=== PATIENT | male | born 1950 | race African-American/Black ===

== ENCOUNTER 2019-02-08 09:07 | Emergency (ER) | payer OTHER ==
[~2019-02-08] VITALS: Ht 179.1 cm; Wt 121.6 kg
--- NOTE | 2019-02-08 09:35 | PHYS DOC ---
Past Medical History Past Medical History: Asthma, Bronchitis, Diabetes-Type II, Hypertension Past Surgical History: Other Additional Past Surgical Histo: left eye, right abdomen skin, Alcohol Use: None Drug Use: None Adult General Chief Complaint Chief Complaint: GROIN PAIN [facility] HPI Patient is a 68-year-old male who presents with complaint of right groin pain that has been intermittent for the last 1-2 months. Patient states that he started noticing the pain again yesterday. He rates pain at a 7 out of 10. He states the pain radiates down into his right testicle. He denies any urinary discomfort. He also denies any nausea or vomiting. Patient has had no fever or back pain. He denies any dysuria or penile discharge.[] Review of Systems Review of Systems Constitutional: Denies fever or chills [] Respiratory: Denies cough or shortness of breath [] Cardiovascular: No additional information not addressed in HPI [] GI: Denies abdominal pain, nausea, vomiting, bloody stools or diarrhea [] : Positive right groin/right testicular pain[] Musculoskeletal: Denies back pain or joint pain [] All other systems were reviewed and found to be within normal limits, except as documented in this note. Current Medications Current Medications Current Medications Medications (Trade) Dose Ordered Sig/Lindsey Start Time Stop Time Status Last Admin Dose Admin Ceftriaxone Sodium (Rocephin Im) 250 mg 1X ONCE 02/08/19 11:45 02/08/19 11:46 UNV Allergies Allergies Allergies Coded Allergies Type Severity Reaction Last Updated Verified Penicillins Allergy Intermediate h/a, passed out 02/21/15 Yes erythromycin base Allergy Intermediate H/A 02/21/15 Yes Physical Exam Physical Exam Constitutional: Well developed, well nourished, no acute distress, non-toxic appearance. [] HENT: Normocephalic, atraumatic, bilateral external ears normal, oropharynx moist, no oral exudates, nose normal. [] Eyes: PERRLA, EOMI, conjunctiva normal, no discharge. [] Neck: Normal range of motion, no tenderness, supple, no stridor. [] Cardiovascular: Regular rate and rhythm[] Lungs & Thorax: Bilateral breath sounds clear to auscultation [] Abdomen: Bowel sounds normal, soft, no tenderness. [] Skin: Warm, dry, no erythema, no rash. [] Extremities: No tenderness, no cyanosis, no clubbing, ROM intact. [] Neurologic: Alert and oriented X 3, no focal deficits noted. [] : There is diffuse right testicular tenderness that limits evaluation. No scrotal or penile lesions and no penile discharge is noted. [] Current Patient Data Vital Signs Vital Signs Date Time Temp Pulse Resp B/P (MAP) Pulse Ox O2 Delivery O2 Flow Rate FiO2 02/08/19 09:19 98.9 89 16 125/72 (89) 97 Room Air 98.9 Lab Values Laboratory Tests Test 02/08/19 09:15 02/08/19 09:40 Urine Collection Type Void Urine Color Yellow Urine Clarity Cloudy Urine pH 5.5 Urine Specific [employer] >=1.030 Urine Protein 30 mg/dL (NEG-TRACE) Urine Glucose (UA) >=1000 mg/dL (NEG) Urine Ketones (Stick) Negative mg/dL (NEG) Urine Blood Trace (NEG) Urine Nitrite Positive (NEG) Urine Bilirubin Negative (NEG) Urine Urobilinogen Dipstick 1.0 mg/dL (0.2 mg/dL) Urine Leukocyte Esterase Moderate (NEG) Urine RBC 0 /HPF (0-2) Urine WBC >40 /HPF (0-4) Urine Squamous Epithelial Cells Few /LPF Urine Bacteria Few /HPF (0-FEW) Urine Hyaline Casts Occasional /HPF White Blood Count 16.7 x10^3/uL (4.0-11.0) H Red Blood Count 4.99 x10^6/uL (4.30-5.70) Hemoglobin 13.7 g/dL (13.0-17.5) Hematocrit 41.4 % (39.0-53.0) Mean Corpuscular Volume 83 fL (79-100) Mean Corpuscular Hemoglobin 28 pg (25-35) Mean Corpuscular Hemoglobin Concent 33 g/dL (31-37) Red Cell Distribution Width 16.5 % (11.5-14.5) H Platelet Count 272 x10^3/uL (140-400) Neutrophils (%) (Auto) 79 % (31-73) H Lymphocytes (%) (Auto) 9 % (24-48) L Monocytes (%) (Auto) 11 % (0-9) H Eosinophils (%) (Auto) 0 % (0-3) Basophils (%) (Auto) 1 % (0-3) Neutrophils # (Auto) 13.2 x10^3/uL (1.8-7.7) H Lymphocytes # (Auto) 1.4 x10^3/uL (1.0-4.8) Monocytes # (Auto) 1.9 x10^3/uL (0.0-1.1) H Eosinophils # (Auto) 0.1 x10^3/uL (0.0-0.7) Basophils # (Auto) 0.1 x10^3/uL (0.0-0.2) Segmented Neutrophils % 74 % (35-66) H Band Neutrophils % 6 % (0-9) Lymphocytes % 11 % (24-48) L Monocytes % 9 % (0-10) Platelet Estimate Adequate (ADEQUATE) Sodium Level 136 mmol/L (136-145) Potassium Level 4.5 mmol/L (3.5-5.1) Chloride Level 99 mmol/L (98-107) Carbon Dioxide Level 30 mmol/L (21-32) Anion Gap 7 (6-14) Blood Urea Nitrogen 27 mg/dL (8-26) H Creatinine 1.6 mg/dL (0.7-1.3) H Estimated GFR (Cockcroft-Gault) 52.6 BUN/Creatinine Ratio 17 (6-20) Glucose Level 123 mg/dL (70-99) H Calcium Level 8.9 mg/dL (8.5-10.1) Total Bilirubin 1.0 mg/dL (0.2-1.0) Aspartate Amino Transferase (AST) 19 U/L (15-37) Alanine Aminotransferase (ALT) 21 U/L (16-63) Alkaline Phosphatase 58 U/L (46-116) Total Protein 7.6 g/dL (6.4-8.2) Albumin 3.4 g/dL (3.4-5.0) Albumin/Globulin Ratio 0.8 (1.0-1.7) L Laboratory Tests 02/08/19 09:40 Laboratory Tests 02/08/19 09:40 EKG EKG [] Radiology/Procedures Radiology/Procedures [] Impressions: PROCEDURE: TESTICULAR/SCROTUM TESTICULAR/SCROTUM History: Right testicular pain. Comparison: None. Technique: Multiple grayscale, color flow Doppler and Doppler spectral analysis images of the scrotum are obtained. Findings: Right testicle measures 4.6 x 3.2 x 2.9 cm. Increased color Doppler flow compared to the left. The right epididymis is unremarkable. Left testicle measures 4.6 x 2.9 x 2.2 cm. Heterogeneous appearance of the left testicle. Decreased flow within the left compared to the right testicle. The left epididymis demonstrates cyst measures 0.9 x 0.7 x 0.4 cm. Small to moderate right hydrocele. Bilateral varicoceles. Scrotal hyperemia or swelling are not seen. IMPRESSION: 1. Increased Doppler flow within the right testicle compared to the left, may represent orchitis. Recommend correlation with patient's symptoms. 2. Heterogeneous appearance of the left testicle with decreased flow compared to the right. Correlate with patient's symptoms and recommend short-term interval follow-up. 3. Bilateral varicoceles. 4. Small to moderate right hydrocele. Electronically signed by: Goran Diaz DO (02/08/2019 11:20 AM) [id number] Course & Med Decision Making Course & Med Decision Making Pertinent Labs and Imaging studies reviewed. (See chart for details) [] Dragon Disclaimer Dragon Disclaimer This electronic medical record was generated, in whole or in part, using a voice recognition dictation system. Departure Departure Impression: Primary Impression: Orchitis Disposition: 01 HOME, SELF-CARE Condition: STABLE Referrals: VERONICA SANCHEZ MD (PCP) Patient Instructions: Orchitis Additional Instructions: Call to schedule follow-up appointment with your primary care provider in the next few days. Scripts Hydrocodone/Apap 5-325 (NORCO 5-325 TABLET) 1 Each Tablet 1-2 EACH PO PRN Q6HRS PRN for PAIN, #15 as needed for pain Prov: ARTEM WARNER Jr., DO 02/08/19 Diclofenac Sodium (DICLOFENAC SODIUM) 50 Mg Tablet.dr 1 TAB PO BID PRN for PAIN, #20 TAB Prov: ARTEM WARNER Jr., DO 02/08/19 Levofloxacin (LEVAQUIN) 500 Mg Tablet 1 TAB PO DAILY for 10 Days, #10 TAB 0 Refills Prov: ARTEM WARNER Jr., DO 02/08/19 Doxycycline Hyclate (DOXYCYCLINE HYCLATE) 100 Mg Capsule 1 CAP PO BID, #20 CAP Prov: ARTEM WARNER Jr., DO 02/08/19 ARTEM WARNER Jr. DO Feb 08, 2019 09:35
[2019-02-08 09:53] LABS: BASO # 0.1 x10^3/uL (0.0-0.2); BASO % 1 % (0-3); EOS # 0.1 x10^3/uL (0.0-0.7); EOS % 0 % (0-3); HEMATOCRIT 41.4 % (39.0-53.0); HEMOGLOBIN 13.7 g/dL (13.0-17.5); LYMPH # 1.4 x10^3/uL (1.0-4.8); LYMPH % 9 % (24-48); MEAN CORPUSCULAR HEMOGLOBIN 28 pg (25-35); MEAN CORPUSCULAR HGB CONC 33 g/dL (31-37); MEAN CORPUSCULAR VOLUME 83 fL (79-100); MONO # 1.9 x10^3/uL (0.0-1.1); MONO % 11 % (0-9); NEUT # 13.2 x10^3/uL (1.8-7.7); NEUT % 79 % (31-73); PLATELET COUNT 272 x10^3/uL (140-400); RED BLOOD COUNT 4.99 x10^6/uL (4.30-5.70); RED CELL DISTRIBUTION WIDTH 16.5 % (11.5-14.5); WHITE BLOOD COUNT 16.7 x10^3/uL (4.0-11.0)
[2019-02-08 09:58] LABS: BILIRUBIN,URINE NEGATIVE (NEG); CLARITY,URINE CLOUDY; COLOR,URINE YELLOW; NITRITE,URINE POSITIVE (NEG); PH,URINE 5.5; PROTEIN,URINE 30 mg/dL (NEG-TRACE)
[2019-02-08 09:58] LABS: CALCIUM 8.9 mg/dL (8.5-10.1); CREATININE 1.6 mg/dL (0.7-1.3); GFR 52.6; POTASSIUM 4.5 mmol/L (3.5-5.1)
[2019-02-08 10:04] LABS: ALBUMIN 3.4 g/dL (3.4-5.0); ALBUMIN/GLOBULIN RATIO 0.8 (1.0-1.7); TOTAL PROTEIN 7.6 g/dL (6.4-8.2)
[2019-02-08 10:20] LABS: SQUAMOUS EPITHELIAL CELL,UR FEW /LPF
[2019-02-08 10:21] LABS: BACTERIA,URINE FEW /HPF (0-FEW); HYALINE CASTS, URINE OCCASIONAL /HPF; RBC,URINE 0 /HPF (0-2); WBC,URINE >40 /HPF (0-4)
--- NOTE | 2019-02-08 11:23 | RAD ---
TESTICULAR/SCROTUM History: Right testicular pain. Comparison: None. Technique: Multiple grayscale, color flow Doppler and Doppler spectral analysis images of the scrotum are obtained. Findings: Right testicle measures 4.6 x 3.2 x 2.9 cm. Increased color Doppler flow compared to the left. The right epididymis is unremarkable. Left testicle measures 4.6 x 2.9 x 2.2 cm. Heterogeneous appearance of the left testicle. Decreased flow within the left compared to the right testicle. The left epididymis demonstrates cyst measures 0.9 x 0.7 x 0.4 cm. Small to moderate right hydrocele. Bilateral varicoceles. Scrotal hyperemia or swelling are not seen. IMPRESSION: 1. Increased Doppler flow within the right testicle compared to the left, may represent orchitis. Recommend correlation with patient's symptoms. 2. Heterogeneous appearance of the left testicle with decreased flow compared to the right. Correlate with patient's symptoms and recommend short-term interval follow-up. 3. Bilateral varicoceles. 4. Small to moderate right hydrocele. Electronically signed by: Goran Diaz DO (02/08/2019 11:20 AM) [email or web address]
[2019-02-08 11:33] LABS: % BANDS 6 % (0-9); % LYMPHS 11 % (24-48); % MONOS 9 % (0-10); % SEGS 74 % (35-66)
[2019-02-08 11:34] LABS: PLT ESTIMATE ADEQUATE (ADEQUATE)
[2019-02-08] MEDS ORDERED: HYDR-3164 PO (11:44)
[2019-02-08] MEDS ORDERED: DOXY100C2 PO (11:44)
[2019-02-08] MEDS ORDERED: DICL50TA4 PO (11:44)
[2019-02-08] MEDS ORDERED: LEVO500T59 PO (11:44)
[2019-02-08] MEDS ORDERED: cefTRIAXone IM 250 MG VIAL IM ONE (11:45)
[2019-02-08 12:05] VITALS: BP 140/68
== END 2019-02-08 12:12 | disposition home or self-care (01) ==
LOC: ER 09:07
DX: N45.2 Orchitis (principal); J45.909 Unspecified asthma, uncomplicated; E11.9 Type 2 diabetes mellitus without complications; I10 Essential (primary) hypertension; Z88.0 Allergy status to penicillin; Z88.1 Allergy status to other antibiotic agents
CPT/HCPCS: 36415; 76870; 80053; 81001; 85007; 85025; 87086; 87491; 87591; 96372; 99285; J0696; 87186

== ENCOUNTER 2020-05-16 07:09 | Emergency (ER) | payer OTHER ==
[~2020-05-16] VITALS: Ht 177.8 cm; Wt 115.9 kg
[~2020-05-16 07:09] MED LIST: ATOR40TA59 PO; CHLO25TA2 PO; DAPA10TA PO; DICL50TA4 PO; DOXY100C2 PO; HYDR-3164 PO; INSU100V2 SQ; INSU200I4 SQ; LEVO500T59 PO; LISI40TA6 PO; MELO7.5T29 PO; METF850T8 PO
[2020-05-16 07:30] VITALS: BP 175/82
[2020-05-16] MEDS ORDERED: NAPR-683 PO (07:43)
--- NOTE | 2020-05-16 07:43 | PHYS DOC ---
Past Medical History Past Medical History: Asthma, Bronchitis, Diabetes-Type II, Hypertension Past Surgical History: Other Additional Past Surgical Histo: left eye, right abdomen skin, Smoking Status: Never Smoker Alcohol Use: None Drug Use: None Adult General Chief Complaint Chief Complaint: KNEE SWELLING [facility] HPI Patient is a 69 year old male with a past medical history of diabetes, diabetes now presents emergency department complaining of the last month intermittently for pain in the right knee. Patient states he has been having pain in the right knee for approximately 2 half weeks. Patient states he was initially seen at an urgent care center where an x-ray and an MRI were performed. States that the x- ray was read as negative however the MRI has not been followed up by a physician. Patient does state that he has an appointment with his primary care physician tomorrow but was getting out of bed yesterday when felt a popping sensation is having worsening pain over the right medial portion of the knee. Denies any numbness or weakness distal to the area. Has not taken any medication for this. Denies any history of similar symptoms Review of Systems Review of Systems Constitutional: Denies fever or chills [] Eyes: Denies change in visual acuity, redness, or eye pain [] HENT: Denies nasal congestion or sore throat [] Respiratory: Denies cough or shortness of breath [] Cardiovascular: No additional information not addressed in HPI [] GI: Denies abdominal pain, nausea, vomiting, bloody stools or diarrhea [] : Denies dysuria or hematuria [] Musculoskeletal: Denies back pain or joint pain [] Integument: Denies rash or skin lesions [] Neurologic: Denies headache, focal weakness or sensory changes [] Endocrine: Denies polyuria or polydipsia [] All other systems were reviewed and found to be within normal limits, except as documented in this note. Allergies Allergies Allergies Coded Allergies Type Severity Reaction Last Updated Verified Penicillins Allergy Intermediate h/a, passed out 02/21/15 Yes erythromycin base Allergy Intermediate H/A 02/21/15 Yes Physical Exam Physical Exam Constitutional: Well developed, well nourished, no acute distress, non-toxic appearance. [] HENT: Normocephalic, atraumatic, bilateral external ears normal, oropharynx moist, no oral exudates, nose normal. [] Eyes: PERRLA, EOMI, conjunctiva normal, no discharge. [] Neck: Normal range of motion, no tenderness, supple, no stridor. [] Cardiovascular:Heart rate regular rhythm, no murmur [] Lungs & Thorax: Bilateral breath sounds clear to auscultation [] Abdomen: Bowel sounds normal, soft, no tenderness, no masses, no pulsatile masses. [] Skin: Warm, dry, no erythema, no rash. [] Back: No tenderness, no CVA tenderness. [] Extremities: Moderate R medial knee tendernesss, no cyanosis, no clubbing, ROM intact, no edema. [] Neurologic: Alert and oriented X 3, normal motor function, normal sensory function, no focal deficits noted. [] Psychologic: Affect normal, judgement normal, mood normal. [] EKG EKG [] Radiology/Procedures Radiology/Procedures [] Course & Med Decision Making Course & Med Decision Making Pertinent Labs and Imaging studies reviewed. (See chart for details) 69M presenting with new onset of right-sided knee pain that is most consistent with an acute collateral ligament or meniscal tear. At this time will provide Vishnu wrap and the patient is going to follow-up with his primary care doctor for an MRI read and further evaluation in 2 days. Dragon Disclaimer Dragon Disclaimer This electronic medical record was generated, in whole or in part, using a voice recognition dictation system. Departure Departure Impression: Primary Impression: Right knee injury Disposition: 01 DC HOME SELF CARE/HOMELESS Condition: GOOD Referrals: VERONICA SANCHEZ MD (PCP) Patient Instructions: Knee Pain Additional Instructions: EMERGENCY DEPARTMENT GENERAL DISCHARGE INSTRUCTIONS Thank you for coming to [facility] Emergency Department (ED) today and trusting us with you care. We trust that you had a positive experience in our Emergency Department. If you wish to speak to the department management, you may call the Director at [phone]. YOUR FOLLOW UP INSTRUCTIONS ARE FOLLOWS: 1. Do you have a private Doctor? If you do not have a private doctor, please ask for a resource list of physicians or clinics that may be able to assist you with follow up care. 2. The Emergency Physicain has interpreted your x-rays. The X-Ray specialist will also review them. If there is a change in the findings, you will be notified in 48 hours when at all possible. 3. A lab test or culture has been done, your results will be reviewed and you will be notified if you need a change in treatment. ADDITIONAL INSTRUCTIONS AND INFORMATION: 1. Your care today has been supervised by a physician who is specially trained in emergency care. Many problems require more than one evaluation for a complete diagnosis and treatment. We recommend that you schedule your follow up appointment as recommended to ensure complete treatment of you illness or injury. If you are unable to obtain follow up care and continue to have a problem, or if your condition worsens, we recommend that you return to the ED. 2. We are not able to safely determine your condition over the phone nor are we able to give sound medical advice over the phone. For these safety reasons, if you call for medical advice we will ask you to come to the ED for further evaluation. 3. If you have any questions regarding these discharge instructions please call the ED at [phone]. SAFETY INFORMATION: In the interest of safety, wellness, and injury prevention; we encourage you to wear your sealbelt, if you smoke; quite smoking, and we encourage family to use a protective helmet for bicycling and other sporting events that present an increased risk for head injury. IF YOUR SYMPTOMS WORSEN OR NEW SYMPTOMS DEVELOP, OR YOU HAVE CONCERNS ABOUT YOUR CONDITION; OR IF YOUR CONDITION WORSENS WHILE YOU ARE WAITING FOR YOUR FOLLOW UP APPOINTMENT; EITHER CONTACT YOUR PRIMARY CARE DOCTOR, THE PHYSICIAN WHOSE NAME AND NUMBER YOU WERE GIVEN, OR RETURN TO THE ED IMMEDIATELY. Scripts Naproxen (NAPROSYN) 500 Mg Tablet 1 TAB PO BID for pain, #20 TAB Prov: CHAPITO CASTELAN MD 05/16/20 CHAPITO CASTELAN MD May 16, 2020 07:43
[2020-05-16] MEDS ORDERED: ACETAMINOPHEN 500 MG TABLET PO ONE (07:45)
[2020-05-16] MEDS ORDERED: IBUPROFEN 400 MG TABLET. PO ONE (07:45)
== END 2020-05-16 08:16 | disposition home or self-care (01) ==
LOC: ER 07:09
DX: S89.91XA Unspecified injury of right lower leg, initial encounter (principal); E11.9 Type 2 diabetes mellitus without complications; I10 Essential (primary) hypertension; J45.909 Unspecified asthma, uncomplicated; Z88.0 Allergy status to penicillin; Z88.1 Allergy status to other antibiotic agents; X50.9XXA Other and unspecified overexertion or strenuous movements or postures, initial encounter; Y93.89 Activity, other specified; Y92.89 Other specified places as the place of occurrence of the external cause; Y99.8 Other external cause status
CPT/HCPCS: 99282